=== PATIENT | female | born 1955 | race Caucasian/White ===

== ENCOUNTER 2019-12-17 05:08 | Day surgery (SDC) | payer MEDICARE, OTHER ==
[2019-12-12 11:46] LABS: BASOPHILS # (AUTO) 0.1 X10'3 (0-0.2); BASOPHILS % (AUTO) 0.9 % (0-1); EOSINOPHILS # (AUTO) 0.3 X10'3 (0-0.9); EOSINOPHILS % (AUTO) 3.1 % (0-6); HEMATOCRIT 44.4 % (35.0-45.0); HEMOGLOBIN 14.9 g/dl (12.0-16.0); LYMPHOCYTES # (AUTO) 2.6 X10'3 (1.1-4.8); LYMPHOCYTES % (AUTO) 25.2 % (21-51); MEAN CORPUSCULAR HEMOGLOBIN 31.3 PG (27.0-31.0); MEAN CORPUSCULAR HGB CONC 33.5 g/dL (33.0-36.5); MEAN CORPUSCULAR VOLUME 93.3 FL (78-98); MEAN PLATELET VOLUME 8.5 FL (7.4-10.4); MONOCYTES # (AUTO) 0.5 X10'3 (0-0.9); MONOCYTES % (AUTO) 5.1 % (2-12); NEUTROPHILS # (AUTO) 6.7 X10'3 (1.8-7.7); NEUTROPHILS % (AUTO) 65.7 % (42-75); PLATELET COUNT 285 X10'3 (140-440); RED BLOOD COUNT 4.76 X10'6 (4.20-5.60); RED CELL DISTRIBUTION WIDTH 14.8 % (11.5-14.5); WHITE BLOOD COUNT 10.3 X10'3 (4.5-11.0)
[2019-12-12 11:52] LABS: ALBUMIN 3.5 G/DL (3.4-5.0); ANION GAP 8 (8-16); BLOOD UREA NITROGEN 9 MG/DL (7-18); CALCIUM 9.1 MG/DL (8.5-10.1); CHLORIDE 98 MMOL/L (99-107); CREATININE 1.12 MG/DL (0.40-0.90); GLUCOSE 228 MG/DL (70-104); SODIUM 133 MMOL/L (135-145); TOTAL CARBON DIOXIDE 27.1 MMOL/L (24-32); eGFR 49 ML/MIN
[2019-12-12 11:55] LABS: PARTIAL THROMBOPLASTIN TIME 33 SECONDS (22-32)
[2019-12-17] VITALS (8 sets, daily range): BP systolic 90–149; BP diastolic 50–108
[~2019-12-17] VITALS: Ht 162.6 cm; Wt 89.9 kg
[2019-12-17] MEDS ORDERED: diphenhydrAMINE 25mg capsule PO PRN (05:25)
[2019-12-17] MEDS ORDERED: LIDOcaine/PRILOcaine 5gm cream TP ONE (05:25)
[2019-12-17] MEDS ORDERED: normal saline 1,000 ML IV SCH (05:25)
[2019-12-17] MEDS ORDERED: LORazepam 0.5 MG tablet PO PRN (05:25)
[2019-12-17] MEDS ORDERED: TRAM50TA2 PO (05:37)
[2019-12-17] MEDS ORDERED: ARIP5TAB14 PO (05:37)
[2019-12-17] MEDS ORDERED: LANTUS SQ (05:37)
[2019-12-17] MEDS ORDERED: CLOP75TA33 PO (05:37)
[2019-12-17] MEDS ORDERED: ONDA4TAB6 PO (05:37)
[2019-12-17] MEDS ORDERED: GABA600T13 PO (05:37)
[2019-12-17] MEDS ORDERED: ATOR80TA PO (05:37)
[2019-12-17] MEDS ORDERED: METH500T6 PO (05:37)
[2019-12-17] MEDS ORDERED: CARV3.12 PO (05:37)
[2019-12-17] MEDS ORDERED: HYDR-3972 PO (05:37)
[2019-12-17] MEDS ORDERED: VENL75TA4 PO (05:37)
[2019-12-17] MEDS ORDERED: GLIP5TAB13 PO (05:37)
[2019-12-17] MEDS ORDERED: INSU100I8 SQ (05:37)
[2019-12-17] MEDS ORDERED: LIDOcaine 1% (10mg/ml)w/preservative injection 20ml MDV ONE (06:06)
[2019-12-17] MEDS ORDERED: heparin 1,000unit/ml 10ml vial 10 ML ONE (06:06)
[2019-12-17] MEDS ORDERED: iohexol 350MG/ML 100ml bottle IV ONE ×2 (06:06→06:55)
[2019-12-17] MEDS ORDERED: fentaNYL/PF 50MCG/1 ML 2ML syringe ONE (06:06)
[2019-12-17] MEDS ORDERED: verapamil 2.5 mg/ml inj IV ONE (06:06)
[2019-12-17] MEDS ORDERED: midazolam 2 mg/2 ml injection ONE (06:06)
[2019-12-17] MEDS ORDERED: nitroGLYCERIN-Tridil 50MG/D5W 250 ML IV ONE (06:07)
[2019-12-17] MEDS ORDERED: clopidogrel 300mg tablet ONE (07:27)
[2019-12-17] MEDS ORDERED: aspirin 325mg tablet ONE (07:37)
[2019-12-17] MEDS ORDERED: proCHLORperazine 10 MG/2 ml inj IV PRN (08:15)
[2019-12-17] MEDS ORDERED: HYDROcodone/acetaminophen 5mg/325mg tablet PO PRN (08:15)
[2019-12-17] MEDS ORDERED: HYDROcodone/acetaminophen 10/325mg tab PO PRN (08:15)
[2019-12-17] MEDS ORDERED: OXAZEpam 15mg capsule PO PRN (08:15)
[2019-12-17] MEDS ORDERED: nitroGLYCERIN 0.4mg SUBLingual tab SL PRN (08:15)
[2019-12-17] MEDS ORDERED: ondansetron/PF 4mg/2ml inj IV PRN (08:15)
[2019-12-17] MEDS ORDERED: FLU VACC QS2020-21(6MOS UP)/PF 60 MCG/0.5 ML SYRINGE IMVAC ONE (08:55)
== END 2019-12-17 10:45 | disposition home or self-care (01) ==
LOC: SSTAY O 05:08
PROVIDERS: ATTEND Internal Medicine Interventional Cardiology
DX: R94.39 Abnormal result of other cardiovascular function study (principal); I25.10 Atherosclerotic heart disease of native coronary artery without angina pectoris; I10 Essential (primary) hypertension; E11.9 Type 2 diabetes mellitus without complications; E78.49 Other hyperlipidemia; J44.9 Chronic obstructive pulmonary disease, unspecified; F17.210 Nicotine dependence, cigarettes, uncomplicated; Z79.4 Long term (current) use of insulin; Z79.899 Other long term (current) drug therapy; Z79.01 Long term (current) use of anticoagulants; Z86.73 Personal history of transient ischemic attack (TIA), and cerebral infarction without residual deficits; Z88.0 Allergy status to penicillin; Z90.710 Acquired absence of both cervix and uterus; Z98.890 Other specified postprocedural states; Z90.49 Acquired absence of other specified parts of digestive tract; Z83.3 Family history of diabetes mellitus; Z82.49 Family history of ischemic heart disease and other diseases of the circulatory system
CPT/HCPCS: 36415; 80048; 82948; 85025; 85610; 85730; 93005; 93458; 99152; 99153; C1725; C1751; C1769; C1874; C1894; C9600; J1644; J2001; J2250; J3010; J7030; Q0163; Q9967; A4620; A5120; J3490

== ENCOUNTER 2020-05-25 13:40 | Observation (INO) | payer OTHER ==
[2020-05-19 13:51] LABS: BASOPHILS # (AUTO) 0.1 X10'3 (0-0.2); BASOPHILS % (AUTO) 1.1 % (0-1); EOSINOPHILS # (AUTO) 0.3 X10'3 (0-0.9); EOSINOPHILS % (AUTO) 2.5 % (0-6); HEMATOCRIT 44.9 % (35.0-45.0); HEMOGLOBIN 14.9 g/dl (12.0-16.0); LYMPHOCYTES # (AUTO) 2.7 X10'3 (1.1-4.8); LYMPHOCYTES % (AUTO) 23.3 % (21-51); MEAN CORPUSCULAR HEMOGLOBIN 31.1 PG (27.0-31.0); MEAN CORPUSCULAR HGB CONC 33.2 g/dL (33.0-36.5); MEAN CORPUSCULAR VOLUME 93.7 FL (78-98); MEAN PLATELET VOLUME 8.5 FL (7.4-10.4); MONOCYTES # (AUTO) 0.5 X10'3 (0-0.9); MONOCYTES % (AUTO) 4.6 % (2-12); NEUTROPHILS % (AUTO) 68.5 % (42-75); PLATELET COUNT 317 X10'3 (140-440); RED BLOOD COUNT 4.79 X10'6 (4.20-5.60); RED CELL DISTRIBUTION WIDTH 15.4 % (11.5-14.5); WHITE BLOOD COUNT 11.7 X10'3 (4.5-11.0)
[2020-05-19 13:52] LABS: CLARITY,URINE SLIGHTLY CLOUDY (Clear); COLOR,URINE STRAW (Yellow); GLUCOSE, URINE NEGATIVE (Neg); KETONES,URINE NEGATIVE (Neg); LEUKOCYTE ESTERASE ,URINE NEGATIVE (Neg); NITRITES, URINE NEGATIVE (Neg); OCCULT BLOOD,URINE NEGATIVE (Neg); PH,URINE 5.5 (4.8-8.0); PROTEIN,URINE NEGATIVE (Neg); UROBILINOGEN,URINE 0.2 E.U/dL (0.2-1.0)
[2020-05-19 13:57] LABS: UA COLLECTION TYPE CLN CATCH MIDSTREAM
[2020-05-19 13:59] LABS: ALBUMIN 3.6 G/DL (3.4-5.0); BLOOD UREA NITROGEN 10 MG/DL (7-18); BUN/CREATININE RATIO 9.5 (6.6-38.0); CALCIUM 9.5 MG/DL (8.5-10.1); CHLORIDE 101 MMOL/L (99-107); CREATININE 1.05 MG/DL (0.40-0.90); GLUCOSE 202 MG/DL (70-104); TOTAL CARBON DIOXIDE 26.5 MMOL/L (24-32); eGFR 53 ML/MIN
[2020-05-19 14:01] LABS: ANION GAP 10 (8-16); POTASSIUM 4.2 MMOL/L (3.5-5.1); SODIUM 137 MMOL/L (135-145)
[2020-05-19 14:02] LABS: BACTERIA,URINE FEW /HPF (Neg); RBC,URINE NONE SEEN /HPF (0-2); WBC,URINE 0-4 /HPF (0-4)
[2020-05-19 14:02] LABS: PARTIAL THROMBOPLASTIN TIME 30 SECONDS (22-32)
[2020-05-19 14:03] LABS: SQUAMOUS EPITHELIAL CELL,UR FEW /LPF (FEW)
[~2020-05-25] VITALS: Ht 162.6 cm; Wt 83.4 kg
[~2020-05-25 13:40] MED LIST: ARIP5TAB14 PO; ATOR80TA PO; CARV3.12 PO; CLOP75TA33 PO; GABA600T13 PO; GLIP5TAB13 PO; HYDR-3972 PO; INSU100I8 SQ; LANTUS SQ; METH-797 PO; ONDA4TAB6 PO; TRAM50TA2 PO; VENL75TA4 PO
[2020-05-25] MEDS ORDERED: BUDE10.22 INH (14:12)
[2020-05-25] MEDS ORDERED: SACU1TAB PO (14:12)
[2020-05-25] MEDS ORDERED: ASPI-1265 PO (14:12)
[2020-05-25] MEDS ORDERED: ALBU8.5H8 INH (14:12)
[2020-05-25] MEDS ORDERED: LIRA0.6P SQ (14:12)
[2020-05-25] MEDS ORDERED: normal saline 1000ml 1,000 ML IV SCH (14:20)
[2020-05-25 14:22] VITALS: BP 129/69
[2020-05-25] MEDS ORDERED: CLINDAMYCIN/D5W 900mg/50ml 50 ML IV ONE (15:50)
[2020-05-25] MEDS ORDERED: clindamycin phosphate 150mg/ml inj. ONE (16:17)
[2020-05-25] MEDS ORDERED: clindamycin 600mg/D5W 50ml 50 ML IV ONE (16:17)
[2020-05-25] MEDS ORDERED: LIDOcaine 1% W/epiNEPHrine 1:100,000 20ml vial ONE (16:18)
[2020-05-25] MEDS ORDERED: iohexol 350MG/ML 100ml bottle IV ONE (18:12)
[2020-05-25] MEDS ORDERED: midazolam 1 mg/ML 2ml injection ONE ×2 (18:12→18:28)
[2020-05-25] MEDS ORDERED: fentaNYL/PF 50MCG/1 ML 2ML syringe ONE (18:12)
--- NOTE | 2020-05-25 19:07 | NUR ---
Report called to MAKI Deleon on [facility] unit. Receiving RN had opportunity to ask questions. Pt to be transferred to [facility] rm 311 upon d/c from the rn labor delivery.
--- NOTE | 2020-05-25 19:10 | NUR ---
Called pt's Jed to inform him of pt's room # on [facility] unit.
[2020-05-25] MEDS ORDERED: ARIP5TAB60 PO (19:24)
[2020-05-25] MEDS ORDERED: ASPI-1397 PO (19:24)
[2020-05-25] MEDS ORDERED: HYDROcodone/acetaminophen 5mg/325mg tablet PO PRN (20:40)
[2020-05-25] MEDS ORDERED: HYDROcodone/acetaminophen 10/325mg tab PO PRN (20:40)
[2020-05-25] MEDS ORDERED: clindamycin 150mg capsule PO SCH (21:00)
== END 2020-05-25 21:00 | disposition home or self-care (01) ==
LOC: SSTAY O 13:40 → MED 3N 19:05
PROVIDERS: ADMIT Internal Medicine Interventional Cardiology; ATTEND Internal Medicine Interventional Cardiology
DX: I42.9 Cardiomyopathy, unspecified (principal); I50.22 Chronic systolic (congestive) heart failure; I44.7 Left bundle-branch block, unspecified; I45.81 Long QT syndrome; I25.10 Atherosclerotic heart disease of native coronary artery without angina pectoris; J44.9 Chronic obstructive pulmonary disease, unspecified; E11.9 Type 2 diabetes mellitus without complications; I71.4 Abdominal aortic aneurysm, without rupture; E78.00 Pure hypercholesterolemia, unspecified; E78.49 Other hyperlipidemia; F17.210 Nicotine dependence, cigarettes, uncomplicated; Z86.73 Personal history of transient ischemic attack (TIA), and cerebral infarction without residual deficits; Z79.4 Long term (current) use of insulin; Z79.51 Long term (current) use of inhaled steroids; Z79.82 Long term (current) use of aspirin; Z79.02 Long term (current) use of antithrombotics/antiplatelets; Z79.899 Other long term (current) drug therapy; Z88.0 Allergy status to penicillin
CPT/HCPCS: 33225; 33249; 36415; 80048; 81001; 82948; 85025; 85610; 85730; 93005; 96365; C1769; C1882; C1887; C1895; C1900; G0378; J2250; J3010; J3490; J7030; Q9967; 99152; 99153; A4565; A4620; A6258; C1777; C1898

== ENCOUNTER 2022-05-16 13:58 | Day surgery (SDC) | payer OTHER, MEDICAID ==
[2022-05-16] VITALS (8 sets, daily range): BP systolic 118–161; BP diastolic 57–75
[~2022-05-16] VITALS: Ht 162.6 cm; Wt 83.6 kg
[~2022-05-16 13:58] MED LIST changes: +ALBU8.5H17 INH; -ARIP5TAB14 PO; +ARIP5TAB60 PO; +ASPI-1397 PO; +BUDE10.22 INH; -GLIP5TAB13 PO; +LIRA0.6P SQ; -METH-797 PO; -ONDA4TAB6 PO; +SACU1TAB PO
[2022-05-16] MEDS ORDERED: LORazepam 0.5 MG tablet PO PRN (14:25)
[2022-05-16] MEDS ORDERED: normal saline 1,000 ML IV SCH (14:25)
[2022-05-16] MEDS ORDERED: diphenhydrAMINE 25mg capsule PO PRN (14:25)
[2022-05-16] MEDS ORDERED: ONDA8TAB13 PO (15:35)
[2022-05-16] MEDS ORDERED: INSU100V41 SQ (15:35)
[2022-05-16] MEDS ORDERED: BACL10TA PO (15:35)
[2022-05-16] MEDS ORDERED: CARV6.253 PO (15:35)
[2022-05-16] MEDS ORDERED: FURO-150 PO (15:35)
[2022-05-16] MEDS ORDERED: LIDOcaine 1% 30ml preserv. free vial ONE (15:59)
[2022-05-16] MEDS ORDERED: fentaNYL/PF 50MCG/1 ML 2ML syringe ONE (15:59)
[2022-05-16] MEDS ORDERED: iohexol 350MG/ML 100ml bottle IV ONE (15:59)
[2022-05-16] MEDS ORDERED: heparin 1,000unit/ml 10ml vial 10 ML ONE (15:59)
[2022-05-16] MEDS ORDERED: midazolam 1 mg/ML 2ml injection ONE (15:59)
[2022-05-16] MEDS ORDERED: clopidogrel 300mg tablet ONE (17:23)
[2022-05-16] MEDS ORDERED: HYDROcodone/acetaminophen 10/325mg tab PO PRN (18:10)
[2022-05-16] MEDS ORDERED: HYDROcodone/acetaminophen 5mg/325mg tablet PO PRN (18:10)
[2022-05-17] MEDS ORDERED: pneumococcal 23-VAL P-sac vacc 25 mcg/0.5ml vial IMVAC ONE (12:00)
== END 2022-05-16 19:35 | disposition home or self-care (01) ==
LOC: SSTAY O 13:58 → PCU 3S 15:04 → SSTAY O 19:35
PROVIDERS: ATTEND Student in an Organized Health Care Education/Training Program
DX: E11.51 Type 2 diabetes mellitus with diabetic peripheral angiopathy without gangrene (principal); I70.213 Atherosclerosis of native arteries of extremities with intermittent claudication, bilateral legs; I25.10 Atherosclerotic heart disease of native coronary artery without angina pectoris; J44.9 Chronic obstructive pulmonary disease, unspecified; I50.9 Heart failure, unspecified; Z95.5 Presence of coronary angioplasty implant and graft; Z86.73 Personal history of transient ischemic attack (TIA), and cerebral infarction without residual deficits; Z95.810 Presence of automatic (implantable) cardiac defibrillator; Z88.0 Allergy status to penicillin; Z79.01 Long term (current) use of anticoagulants; Z79.899 Other long term (current) drug therapy; Z79.4 Long term (current) use of insulin; Z79.82 Long term (current) use of aspirin
CPT/HCPCS: 37220; 75625; 75710; 82948; 93005; 99152; 99153; C1725; C1760; C1769; C1894; J1644; J2250; J3010; J3490; J7030; Q0163; Q9967; 36140; 37224; 90732; C2623; G0278; G0378